=== PATIENT | female | born 1970 | race Caucasian/White ===

== ENCOUNTER 2021-08-28 15:16 | Emergency (ER) | payer OTHER ==
[2021-08-28 16:12] LABS: BASOPHIL 1.2 % (0-2); EOSINOPHIL 1.3 % (0-5); HCT 46.5 % (37.0-47.0); HGB 16.3 g/dl (12.5-16.0); LYMPHOCYTE 27.7 % (15-48); MCH 28.7 pg (25.0-31.0); MCHC 35.1 g/dL (32.0-36.0); MPV 8.4 fL (6.0-9.5); NEUTROPHIL 59.4 % (41-80); NRBC 0; PLT 335 K/uL (150-400); RBC 5.67 M/uL (4.20-5.40); RDW 12.9 % (11.5-14.0); WBC 11.4 K/uL (4.0-10.5)
[2021-08-28 16:28] LABS: ALBUMIN 4.4 g/dL (3.4-5.0); BILIRUBIN - TOTAL 0.6 mg/dL (0.2-1.0); BUN/CREAT RATIO (CALC) 20.5 RATIO; CREATININE 0.73 mg/dL (0.51-0.95); GLOBULIN (CALCULATION) 4.5 g/dL; POTASSIUM 3.8 mmol/L (3.5-5.1); TOTAL PROTEIN 8.9 g/dL (6.4-8.2)
[2021-08-28 17:31] LABS: BILIRUBIN 1+ mg/dL (NEGATIVE); BLOOD NEGATIVE Ery/uL (NEGATIVE); CLARITY CLEAR (CLEAR); COLOR YELLOW (YELLOW); GLUCOSE (U) NORMAL (NORMAL); LEUKOCYTES NEGATIVE Leu/uL (NEGATIVE); NITRITE NEGATIVE (NEGATIVE); PROTEIN 1+ mg/dL (NEGATIVE); SPECIFIC GRAVITY >=1.030 (1.001-1.030)
[2021-08-28 17:38] LABS: URINARY WBC RARE
[2021-08-28 17:39] LABS: BACTERIA TRACE
[2021-08-28] MEDS ORDERED: ONDANSETRON HCL4 MG PO ×2 (18:55→20:07)
[2021-08-28] MEDS ORDERED: BENTYL10 MG PO ×2 (18:55→20:07)
== END 2021-08-28 20:10 | disposition home or self-care (01) ==
LOC: FER 15:16
PROVIDERS: Nurse Practitioner Family
DX: K29.70 Gastritis, unspecified, without bleeding (principal); R10.84 Generalized abdominal pain; Z20.822 Contact with and (suspected) exposure to COVID-19; Z88.1 Allergy status to other antibiotic agents
CPT/HCPCS: 36415; 71275; 80053; 81001; 85025; 85379; J2270; J2405; J7030; Q9967; U0002

== ENCOUNTER → 2021-10-03 | Day surgery (SDC) | payer OTHER ==
[~2021-10-03] VITALS: Ht 160 cm; Wt 90.7 kg
[~2021-10-03] MED LIST: BENADRYL25 MG PO; BENTYL10 MG PO; IBUPROFEN400 MG PO; ONDANSETRON HCL4 MG PO; PEPCID20 MG PO; RIZATRIPTAN5 MG PO
== END | disposition home or self-care (01) ==
LOC: FAS 09:22
DX: K57.30 Diverticulosis of large intestine without perforation or abscess without bleeding (principal); K58.0 Irritable bowel syndrome with diarrhea; K29.50 Unspecified chronic gastritis without bleeding; K31.9 Disease of stomach and duodenum, unspecified; K22.0 Achalasia of cardia; K44.9 Diaphragmatic hernia without obstruction or gangrene; K21.9 Gastro-esophageal reflux disease without esophagitis; Z90.49 Acquired absence of other specified parts of digestive tract; Z72.89 Other problems related to lifestyle; Z88.1 Allergy status to other antibiotic agents; Z79.899 Other long term (current) drug therapy
CPT/HCPCS: J2704; J7120